=== PATIENT | male | born 1950 | race Caucasian/White ===

== ENCOUNTER 2019-02-28 11:53 | Emergency (ER) | payer BC ==
[~2019-02-28] VITALS: Ht 172.7 cm; Wt 56.8 kg
[~2019-02-28 11:53] MED LIST: AMLO5TAB4 PO; ASPI81TA52 PO; ATOR-2 PO; GABA100C14 PO; INSU300I SQ; METF850T13 PO; OXYB5TAB22 PO; STEGLATRO PO
[2019-02-28 11:59] VITALS: Ht 172.7 cm; Wt 56.8 kg
[2019-02-28] MEDS ORDERED: MEROPENEM 1 GM/50ML(PMX) 50 ML IVPB STA (13:21)
[2019-02-28] MEDS ORDERED: HYDROmorphONE 1 MG/ML SYG IV STA (13:21)
[2019-02-28] MEDS ORDERED: VANCOMYCIN 1 GM (PMX) 250 ML IVPB STA (13:21)
[2019-02-28] MEDS ORDERED: SODIUM CHLORIDE 0.9% 1L BAG IV* STA (13:21)
--- NOTE | 2019-02-28 13:50 | ERD ---
ER Documentation Chief Complaint Chief Complaint sent by pcp - diabetic foot - bs - 312mg/dl HPI 68-year-old male sent by Dr. Tomy Marvin for right foot infected wound. Patient was hospitalized a few weeks ago at [facility] for a right foot ulcer. He was also found to have a "blockage in his artery". Initially the blockage was opened up but his foot infection was not improving. After that they had to do a toe amputation of the middle right toe. Since then he has been on home IV antibiotics for the past 4 to 5 weeks, ceftriaxone, without any improvement. He states his pain is over a 10 out of 10, constant, throbbing and stabbing in his right foot, with no significant alleviation with home narcotics. He went to see a new hydraulic design engineer today, who recommended he go to the ER immediately due to gangrene. Patient states that he has had intermittent fevers and chills, worse over the past 3 days. ROS All systems reviewed and are negative except as per history of present illness. Medications Home Meds Reported Medications Aspirin (Low Dose Aspirin) 81 Mg Tablet., 81 MG PO DAILY, #30 TAB 02/28/19 [Steglatro] No Conflict Check, 15 MG PO DAILY 02/28/19 Insulin Glargine,Hum.rec.anlog (Mitchel Silva) 300 Unit/1 Ml Insuln.pen, 12 UNIT SQ DAILY, EA 02/28/19 Metformin Hcl* (Metformin Hcl*) 850 Mg Tablet, 850 MG PO WITH MEALS, #60 TAB 02/28/19 Oxybutynin Chloride* (Ditropan* XL) 5 Mg Tabsr, 5 MG PO DAILY, TAB.SA 02/28/19 Atorvastatin* (Atorvastatin*) 80 Mg Tablet, 80 MG PO QHS, #30 TAB 02/28/19 Amlodipine Besylate* (Norvasc*) 5 Mg Tablet, 5 MG PO DAILY, TAB 02/28/19 Gabapentin* (Gabapentin*) 100 Mg Capsule, 100 MG PO TID, #90 CAP 02/28/19 Allergies Allergies: Coded Allergies: No Known Allergy (Unverified , 02/28/19) PMhx/Soc History of Surgery: Yes (Right foot middle toe amputation) Hx Miscellaneous Medical Probl: Yes (, Peripheral arterial disease) Hx Alcohol Use: No Hx Substance Use: No Hx Tobacco Use: Yes Smoking Status: Current every day smoker FmHx Family History: diabetes Physical Exam Vitals Vital Signs Date Temp Pulse Resp B/P (MAP) Pulse Ox O2 O2 Flow FiO2 Time Delivery Rate 02/28/19 99.5 96 20 122/63 97 11:59 (82) Physical Exam Const: No acute distress Head: Atraumatic Eyes: Normal Conjunctiva ENT: Normal External Ears, Nose and Mouth. Neck: Full range of motion. No meningismus. Resp: Clear to auscultation bilaterally Cardio: Regular rate and rhythm, no murmurs Abd: Soft, non tender, non distended. Normal bowel sounds Skin: No petechiae or rashes Back: No midline or flank tenderness Ext: right lower extremity exam shows multiple wounds, one on the medial tana ntar aspect of the foot, base of the middle toe, medial big toe, over the heel, and lateral distal foot with evidence of wet purulent fluid and some areas of necrotic tissue. The foot is slightly edematous, with mild overlying erythema and tenderness. Unable to palpate DP and PT pulses. Leg above the ankle with no erythema. Compartments soft. Foot is warm to palpation. Neur: Awake and alert Psych: Normal Mood and Affect Result Diagram: 02/28/19 1352 02/28/19 1352 Results 24 hrs Laboratory Tests Test 02/28/19 11:58 02/28/19 13:52 02/28/19 14:00 Bedside Glucose 312 mg/dL White Blood Count 22.4 10^3/ul Red Blood Count 3.00 10^6/ul Hemoglobin 7.5 g/dl Hematocrit 24.1 % Mean Corpuscular Volume 80.3 fl Mean Corpuscular Hemoglobin 25.0 pg Mean Corpuscular 31.1 g/dl Hemoglobin Concent Red Cell Distribution Width 15.6 % Platelet Count 660 10^3/UL Mean Platelet Volume 8.6 fl Immature Granulocytes % 0.800 % Neutrophils % 88.7 % Lymphocytes % 5.8 % Monocytes % 4.3 % Eosinophils % 0.1 % Basophils % 0.3 % Nucleated Red Blood Cells % 0.0 /100WBC Immature Granulocytes # 0.170 10^3/ul Neutrophils # 19.9 10^3/ul Lymphocytes # 1.3 10^3/ul Monocytes # 1.0 10^3/ul Eosinophils # 0.0 10^3/ul Basophils # 0.1 10^3/ul Nucleated Red Blood Cells # 0.0 10^3/ul Prothrombin Time 13.3 Sec Prothrombin Time Ratio 1.0 INR International Normalized Ratio 1.00 Activated Partial Thromboplast 34.7 Sec Time Sodium Level 135 mmol/L Potassium Level 3.5 mmol/L Chloride Level 100 mmol/L Carbon Dioxide Level 26 mmol/L Anion Gap 9 Blood Urea Nitrogen 20 mg/dl Creatinine 1.01 mg/dl Est Glomerular Filtrat Rate mL/min > 60 mL/min Glucose Level 343 mg/dl Calcium Level 8.7 mg/dl Total Bilirubin 0.2 mg/dl Direct Bilirubin 0.00 mg/dl Indirect Bilirubin 0.2 mg/dl Aspartate Amino Transf (AST/SGOT) 14 IU/L Alanine 17 IU/L Aminotransferase (ALT/SGPT) Alkaline Phosphatase 129 IU/L Total Protein 7.3 g/dl Albumin 3.0 g/dl Globulin 4.30 g/dl Albumin/Globulin Ratio 0.69 POC Venous Lactate 1.7 mmol/L Current Medications Medications Dose Sig/Danilo Start Time Status Last (Trade) Ordered Route PRN Stop Time Admin Dose Reason Admin Sodium 1,700 ml BOLUS OVER 2 02/28/19 DC 02/28/19 Chloride HOURS STAT 13:21 14:13 (NS) IV* 02/28/19 13:23 1 mg ONCE STAT 02/28/19 DC 02/28/19 Hydromorphone IV 13:21 14:14 HCl 02/28/19 13:23 (Dilaudid) Vancomycin 250 ml @ ONCE STAT 02/28/19 HCl 125 mls/hr IVPB 13:21 02/28/19 15:20 50 ml @ ONCE STAT 02/28/19 DC 02/28/19 Meropenem/Sod 100 mls/hr IVPB 13:21 14:35 ium Chloride 02/28/19 13:50 Procedures/MDM EMERGENT LABS AND DIAGNOSTIC STUDIES: Lab Results above were reviewed and interpreted by me. CBC: Significant leukocytosis and thrombocytosis, likely secondary to infection. Anemia with hemoglobin 7.5 CMP: Hyperglycemic without acidosis. No evidence of clinically significant electrolyte abnormality, renal failure, hypoglycemia, liver disease, or biliary obstruction Troponin within normal limits, not indicative of cardiac ischemia Lactate within normal limits without evidence of sepsis or tissue hypoperfusion 12-lead EKG was interpreted by NLea Ekmekjian, MD: Normal Sinus Rhythm with ventricular rate of 90 beats per minute Normal axis Normal intervals Anterior lateral Q waves No acute ST or T wave changes suggestive of acute ischemia or STEMI. Radiology Results as interpreted by Radiology below were reviewed by Elvia Moore MD: Chest x-ray shows no acute abnormalities Initial Nursing notes reviewed. Previous Medical Records requested via the Electronic Health Record. EMERGENCY DEPARTMENT COURSE / MEDICAL DECISION MAKING: Patient is presenting with obvious gangrene of the right foot not responsive to outpatient antibiotics. At this time there are no signs of severe sepsis or septic shock. Patient started on broad-spectrum IV antibiotics after blood cultures were drawn. He will require debridement versus amputation of the foot. Due to insurance reasons, patient needs to be transferred to [facility]. He is stable for transfer at this time. I notified Dr. Huitron of the transfer. Dr. Sarabia at [facility] has accepted patient for transfer Departure Diagnosis: Primary Impression: Gangrene of right foot Additional Impression: Sepsis Sepsis type: sepsis due to unspecified organism Sepsis acute organ dysfunction status: without acute organ dysfunction Qualified Codes: A41.9 - Sepsis, unspecified organism Condition: Serious IMELDA MOORE MD Feb 28, 2019 13:50
[2019-02-28] MEDS ORDERED: HYDROmorphONE 2 MG/ML SYG IV STA (16:03)
[2019-02-28 17:00] VITALS: BP 138/64; PULSE 89; RESP 20
== END 2019-02-28 17:48 | disposition short-term general hospital (02) ==
LOC: FTE 11:53 → E/R 17:48
DX: A41.9 Sepsis, unspecified organism (principal); F17.210 Nicotine dependence, cigarettes, uncomplicated; Z79.4 Long term (current) use of insulin; Z79.82 Long term (current) use of aspirin
CPT/HCPCS: 36415; 71045; 80053; 82962; 83605; 85025; 85610; 85730; 86850; 86900; 86901; 87040; 93005; 96374; 96375; 96376; J1170; J2185; J3370; J7030; Z7502